=== PATIENT | female | born 1980 | race Caucasian/White ===

== ENCOUNTER 2019-10-03 11:38 | Outpatient (REF) | payer MEDICAID, SELFPAY ==
--- NOTE | 2019-10-03 10:35 | PAPFT_PTH ---
PATIENT: Camelia Zaragoza LOC: [facility] U#:[id number] AGE/SX: 39/F ROOM: RE10/03/[address]: Maurice Brambila : 1980 BED: DIS: 10/03/2019 SPEC #: [id number] RECD: 10/04/19 12:52 STATUS: ANYA REQ #: [id number] MATT: 10/03/19 10:[address]: Sandrine Hernandez DEPT: [facility] Cytology RECD BY: Deja Dennison ENTERED: 10/04/19 12:52 SP TYPE: PAPFT OTHR DR: Barb Sosa Tissues: 1 - CX/ENDOCX FOR PAP SMEARS Procedures: PAP THIN PREP/[facility] Screening HPV DNA PROBE Comments: [id number] (CHLAMYDIA/GC)
[2019-10-05 14:13] LABS: Chlamydia Result Negative (Negative); GC Result Negative (Negative)
== END 2019-10-03 11:58 ==
LOC: NCHCN 11:38
PROVIDERS: Nurse Practitioner Family; PCP Family Medicine; Visit Provider Family Medicine
DX: Z12.4 Encounter for screening for malignant neoplasm of cervix (principal); Z11.3 Encounter for screening for infections with a predominantly sexual mode of transmission; Z11.51 Encounter for screening for human papillomavirus (HPV); R30.0 Dysuria
CPT/HCPCS: 87077; 87491; 87591; 88142; 87086; 87186; 87624

== ENCOUNTER 2021-06-20 14:16 | Emergency (ER) | payer MEDICAID, SELFPAY ==
[2021-06-20 14:29] VITALS: BP 140/95; PULSE 114; RESP 16; TEMP 37; O2SAT 98
[2021-06-20 14:44] LABS: Bilirubin Negative (Negative); Blood Moderate (Negative); Clarity Sl Cloudy (Clear); Glucose Negative (Negative); Ketones Negative (Negative); Leukocyte Esterase Trace (Negative); Nitrite Positive (Negative); Specific Gravity >= 1.030 (1.005-1.025); Urobilinogen 0.2 EU/dL (Up TO 0.2)
[2021-06-20 14:51] LABS: Bacteria Moderate HPF (Negative); C & S Indicated? No/Sq. Contamination; Casts 3-5 Hyaline LPF (Negative); Crystals Negative HPF (Negative); Epithelial Cells Moderate HPF (Negative); Mucus Trace (Negative); WBC 20-50 HPF (0-5)
--- NOTE | 2021-06-20 15:06 | W.ED.GENAD ---
Discharge Plan Disposition Patient Disposition: HOME Condition: Improving Discharge Details Clinical Impression: UTI (urinary tract infection) Primary Care Provider: Barb Sosa ED Provider: Lai Mendez Home Meds and New Rx's Prescriptions: New cephalexin 500 mg capsule 500 mg PO TID 5 Days Qty: 15 RF: 0 permethrin [Elimite] 5 % cream 1 applic topical Q14D Qty: 60 RF: 0 Continued citalopram 10 MG tablet 1 tab PO DAILY RF: 0 methylphenidate HCl [Concerta] 36 mg tablet extended release 24hr 36 mg PO DAILY RF: 0 buprenorphine-naloxone [Suboxone] 8-2 mg film 2 film DAILY RF: 0 Discharge Instructions Instructions: Urinary Tract Infection in Women (ED) Additional Instructions: May repeat [id number] shampoo for lice. Trial Elimite body lotion as we discussed. Apply neck to toes as per directions and risne. Take antibiotics as prescribed Follow-up with [facility] for recheck. Medical Decision Making 41-year-old female presents with 2 concerns. One is urinary frequency and urgency with associated positive urinalysis today. She is not systemically ill. To that she has recurrent lice. These may be present and/or may be scabies. We will have her repeat ixqd-[id number]-[id number] shampoo and I will prescribe her Elimite. She will follow up with primary care. She is stable for discharge. HPI General Mode of arrival: ambulatory. Date/Time Provider Initiated Documentation: 06/20/21 14:57. Limitations to Documentation: no limitations. Information obtained by: patient. History of Present Illness 41 year old F presents to the emergency department with the chief complaint of UTI and question recurrent lice, described as moderate, and is localized to the abdomen. Patient reports no radiation. Patient started experiencing this day(s) and it has been intermittent. No relieving factors improve symptom(s), No exacerbating factors reported . Patient notes denies fever/chills and headaches. Patient did receive the following treatments prior to arrival, other (See notes) Related Data Home Medications Medication Instructions Recorded Confirmed citalopram 1 tab PO DAILY 08/14/16 06/20/21 buprenorphine-naloxone [Suboxone] 2 film DAILY 06/20/21 06/20/21 cephalexin 500 mg PO TID 5 Days #15 cap 06/20/21 methylphenidate HCl [Concerta] 36 mg PO DAILY 06/20/21 06/20/21 permethrin [Elimite] 1 applic TOPICAL Q14D #60 g 06/20/21 Previous Rx's Medication Instructions Recorded cephalexin 500 mg PO TID 5 Days #15 cap 06/20/21 permethrin [Elimite] 1 applic TOPICAL Q14D #60 g 06/20/21 Allergies Allergy/AdvReac Type Severity Reaction Status Date / Time No Known Allergies Allergy Unverified 06/20/21 14:36 General Stated Complaint: Urinary AILIN: 4 Review of Systems Narrative: No fever, chills, vomiting. States she tried ivermectin for lice as well as [id number] Hard[place]. Urinary frequency, back pain. No fever or vomiting. 8 systems reviewed and otherwise negative. [facility] Social History Smoking risk assessment performed?: No Do you feel safe in your relationship?: Yes Exam Narrative Exam Narrative: GEN: awake, alert, oriented 3. Pleasant, well groomed, interactive. HEAD: Normocephalic, atraumatic, question small lice scalp and hairline, posterior neck scab from excoriation. ENT: Mucous membranes moist, oropharynx unremarkable, External ear exam unremarkable EYES: PERRL, EOMI NECK: Full ROM, no ANTELMO, no menigismus CHEST/RESP: Nontender, clear to auscultation bilateral, no wheeze/rhonchi/rales CARDIOVASCULAR: RRR, no murmur, rub day. 2+ Rad pulse bilateral ABDOMEN: Soft, nontender, no mass. +Bowel sounds EXT: Full ROM, no edema, no rash Neuro: Grossly normal neurologic exam, conversant, interactive. Psych: Speech fluent, thoughts congruent, affect anxious Course Vital Signs Vital signs: Vital Signs Temperature 37 C 06/20/21 14:29 Pulse 114 H 06/20/21 14:29 Respiratory Rate 16 06/20/21 14:29 Blood Pressure 140/95 H 06/20/21 14:29 Pulse Oximetry 98 06/20/21 14:29 Temperature 37 C 06/20/21 14:29 Temperature Source Skin 06/20/21 14:29 Pulse 114 H 06/20/21 14:29 Respiratory Rate 16 06/20/21 14:29 Blood Pressure 140/95 H 06/20/21 14:29 Blood Pressure Position Sitting 06/20/21 14:29 Pulse Oximetry 98 06/20/21 14:29 Oxygen Delivery Method Room Air 06/20/21 14:29 Oxygen Flow Rate 0 06/20/21 14:29 Lab/Test Results Lab/Test Results: Laboratory Tests Range/Units 06/20/21 14:25 Urine Color (Yellow) Yellow Urine Clarity (Clear) Sl Cloudy Urine pH (5-8) 6.0 Ur Specific [place] (1.005-1.025) >= 1.030 H Urine Protein (Negative) mg/dL 100 H Urine Ketones (Negative) mg/dL Negative Urine Blood (Negative) Moderate H Urine Nitrite (Negative) Positive H Urine Bilirubin (Negative) Negative Urine Urobilinogen (Up TO 0.2) EU/dL 0.2 Ur Leukocyte Esterase (Negative) Trace H Urine RBC (0-2) HPF 10-20 H Urine WBC (0-5) HPF 20-50 H Ur Epithelial Cells (Negative) HPF Moderate Urine Crystals (Negative) HPF Negative Urine Bacteria (Negative) HPF Moderate Urine Casts (Negative) LPF 3-5 Hyaline Urine Mucus (Negative) Trace Ur Culture Indicated? No/Sq. Contamination Urine Glucose (Negative) mg/dL Negative
== END 2021-06-20 15:25 | disposition home or self-care (01) ==
PROVIDERS: Student in an Organized Health Care Education/Training Program; Emergency Provider Emergency Medicine; PCP Family Medicine
DX: N39.0 Urinary tract infection, site not specified (principal); B85.0 Pediculosis due to Pediculus humanus capitis
CPT/HCPCS: 99283; 81003; 81015